=== PATIENT | female | born 1980 | race Hispanic/Latino ===

== ENCOUNTER 2022-01-22 11:27 | Emergency (ER) | payer OTHER ==
[~2022-01-22] VITALS: Ht 162.6 cm; Wt 63.5 kg
[2022-01-22] MEDS ORDERED: TETANUS/DIPHTHERIA TOX ADULT 0.5 ML SYR IM ONE (12:45)
[2022-01-22] MEDS ORDERED: HYDROCODONE/APAP 5MG-325MG TAB PO ONE (12:45)
[2022-01-22] MEDS ORDERED: HYDROCODONE/APAP 5MG-325MG TAB ONE (13:02)
[2022-01-22] MEDS ORDERED: TETANUS/DIPHTHERIA TOX ADULT 0.5 ML SYR ONE (13:03)
== END 2022-01-22 15:31 | disposition home or self-care (01) ==
LOC: ER 12:14
DX: S00.81XA Abrasion of other part of head, initial encounter (principal); S60.812A Abrasion of left wrist, initial encounter; S60.512A Abrasion of left hand, initial encounter; S60.511A Abrasion of right hand, initial encounter; S50.812A Abrasion of left forearm, initial encounter; S80.212A Abrasion, left knee, initial encounter; S00.512A Abrasion of oral cavity, initial encounter; K08.89 Other specified disorders of teeth and supporting structures; W01.0XXA Fall on same level from slipping, tripping and stumbling without subsequent striking against object, initial encounter; Y93.02 Activity, running; Y92.89 Other specified places as the place of occurrence of the external cause
CPT/HCPCS: 70450; 70486; 90714; 99284

== ENCOUNTER 2024-10-05 19:47 | Emergency (ER) | payer SELFPAY ==
[~2024-10-05] VITALS: Ht 162.6 cm; Wt 72.6 kg
[2024-10-05 20:33] VITALS: PULSE 73; RESP 18; TEMP 98.7
[2024-10-05 21:01] LABS: BASOPHILS % 0.2 % (0.0-1.0); EOSINOPHILS % 1.7 % (0.0-6.0); LYMPHOCYTES % 36.2 % (18.0-39.1); MONOCYTES % 5.2 % (4.4-11.3); NEUTROPHILS % 56.5 % (38.7-80.0); RED CELL DISTRIBUTION WIDTH 16.2 % (11.7-14.4)
[2024-10-05 21:07] LABS: LEUKOCYTE ESTERASE ,URINE SMALL (NEGATIVE); PROTEIN,URINE DIPSTICK TRACE (NEGATIVE)
[2024-10-05 21:08] LABS: URINE UROBILINOGEN 1 mg/dL (0.2 - 1)
[2024-10-05 21:14] LABS: WBC,URINE (MAN) >50 /HPF (0-5)
[2024-10-05 21:15] LABS: EPITHELIAL CELLS,URINE MODERATE /LPF
[2024-10-05 21:39] LABS: EST GLOMERULAR FILTRATION RATE 99.0 ML/MIN (>=60)
[2024-10-05] MEDS ORDERED: ONDANSETRON ODT4 MG SL (23:02)
[2024-10-05] MEDS ORDERED: CEFDINIR300 MG PO (23:02)
[2024-10-05] MEDS ORDERED: PYRIDIUM200 MG PO (23:02)
[2024-10-05 23:14] VITALS: BP 123/61; PULSE 71; RESP 19; O2SAT 100
[2024-10-05] MEDS: ONDANSETRON HCL 4 MG ORAL DISINTEGRATING TAB PO ONE (23:28)
[2024-10-05] MEDS: CEFDINIR 300 MG CAP PO ONE (23:28)
== END 2024-10-05 23:18 | disposition home or self-care (01) ==
LOC: ER 20:33
DX: M54.50 Low back pain, unspecified (principal); N39.0 Urinary tract infection, site not specified; R31.9 Hematuria, unspecified; N20.0 Calculus of kidney; R11.0 Nausea; Z87.442 Personal history of urinary calculi
CPT/HCPCS: 36415; 74176; 80053; 81001; 84702; 85025; 99283; Q0162